=== PATIENT | male | born 1945 | race Caucasian/White ===

== ENCOUNTER 2019-12-09 12:34 | Inpatient (IN) | payer MEDICARE ==
[2019-12-06 13:48] VITALS: BP 99/66
[2019-12-06 13:56] LABS: CHLORIDE 108 mmol/L (98-107)
[2019-12-06 14:03] LABS: ALANINE AMINOTRANSFERASE 19 U/L (12-78); ALBUMIN 3.1 g/dL (3.4-5.0); ALKALINE PHOSPHATASE 72 U/L (45-117); ANION GAP 8 mmol/L (5-15); BILIRUBIN,TOTAL 0.7 mg/dL (0.2-1.0); CALCIUM 8.9 mg/dL (8.5-10.1); CREATININE 1.44 mg/dL (0.7-1.3); TOTAL PROTEIN 6.6 g/dL (6.4-8.2)
[2019-12-06 14:07] LABS: BASOPHILS # (AUTO) 0.03 x10^3/uL (0-0.1); BASOPHILS % (AUTO) 0 % (0-1); EOSINOPHILS # (AUTO) 0.07 x10^3/uL (0-0.4); EOSINOPHILS % (AUTO) 1 % (1-7); LYMPHOCYTES # (AUTO) 2.04 x10^3/uL (1-3.4); LYMPHOCYTES % (AUTO) 26 % (22-44); MD NO; MEAN CORPUSCULAR HEMOGLOBIN 30.4 pg (27.5-34.5); MEAN CORPUSCULAR HGB CONC 32.3 g/dL (33.2-36.2); MONOCYTES # (AUTO) 0.61 x10^3/uL (0.2-0.8); MONOCYTES % (AUTO) 8 % (2-9); NEUTROPHILS # (AUTO) 5.11 x10^3/uL (1.8-6.8); NEUTROPHILS % (AUTO) 65 % (42-75); PLATELET COUNT 326 x10^3/uL (130-400); RED BLOOD COUNT 5.25 x10^6/uL (4.38-5.82); RED CELL DISTRIBUTION WIDTH 15.8 % (9.4-14.8)
[2019-12-06 14:08] LABS: INTERNATIONAL NORMALIZED RATIO 1.02 (0.93-1.1); PROTHROMBIN TIME 10.8 Seconds (9.6-11.5)
[~2019-12-09] VITALS: Ht 177.8 cm; Wt 117.6 kg
[~2019-12-09 12:34] MED LIST: LACTATED RINGERS 1,000 ML IV SCH; TRANEXAMIC ACID 100 MG/ML, 10ML ONE; WILL BRING DOS
[2019-12-09] MEDS ORDERED: ROPIvacaine/PF 0.2%, 20 ML ONE (13:09)
[2019-12-09] MEDS ORDERED: KETOROLAC 60 MG/2 ML ONE (13:09)
[2019-12-09] MEDS ORDERED: SODIUM CHLORIDE 0.9% 50 ML ONE (13:10)
[2019-12-09 13:12] VITALS: BP 136/89
[2019-12-09] MEDS ORDERED: TAMS-11 PO (13:20)
[2019-12-09] MEDS ORDERED: METO25TA35 PO (13:20)
[2019-12-09] MEDS ORDERED: GABA300C PO (13:20)
[2019-12-09] MEDS ORDERED: ALLO300T PO (13:20)
[2019-12-09] MEDS ORDERED: AMIO200T42 PO (13:20)
[2019-12-09] MEDS ORDERED: ATOR20TA37 PO (13:20)
[2019-12-09] MEDS ORDERED: FAMO20TA7 PO (13:20)
[2019-12-09] MEDS ORDERED: CHLORHEXIDINE 15 ML UDC MM ONE (13:30)
[2019-12-09] MEDS ORDERED: VANCOMYCIN PER PHARMACY MC PRN (13:30)
[2019-12-09] MEDS ORDERED: LACTATED RINGERS 1,000 ML IV SCH (14:00)
[2019-12-09] MEDS ORDERED: ACETAMINOPHEN 500 MG TABLET PO ONE (14:00)
[2019-12-09] MEDS ORDERED: GABAPENTIN 300 MG CAPSULE PO ONE (14:00)
[2019-12-09] MEDS ORDERED: VANCOMYCIN 2,200 MG in SODIUM CHLORIDE 0.9% 500 ML IV ONE (14:30)
[2019-12-09] MEDS ORDERED: ROPivacaine/PF 0.2%, 10 ML ONE (14:31)
[2019-12-09] MEDS ORDERED: MIDAZOLAM 1 MG/ML, 2ML ONE (17:06)
[2019-12-09] MEDS ORDERED: FENTANYL PF 250 MCG/5ML ONE (17:07)
[2019-12-09] MEDS ORDERED: PROPOFOL 10 MG/ML, 100ML IV ONE (17:46)
[2019-12-09] MEDS ORDERED: ROCURONIUM 10 MG/ML,10ML ONE (17:46)
[2019-12-09] MEDS ORDERED: SUGAMMADEX 200 MG/2 ML IVPush ONE (17:46)
[2019-12-09] MEDS ORDERED: VANCOMYCIN 1,000 MG ONE (19:05)
[2019-12-09] MEDS ORDERED: LABETALOL 5MG/ML, 20ML IV PRN (19:30)
[2019-12-09] MEDS ORDERED: hydrALAzine 20 MG/ML, 1ML IV PRN (19:30)
[2019-12-09] MEDS ORDERED: HYDROmorphone 1 MG/ML, 1ML INJ IVPush PRN (19:30)
[2019-12-09] MEDS ORDERED: OXYcodone 5 MG/5 ML ORAL.SOL UDC PO PRN (19:30)
[2019-12-09] MEDS ORDERED: ONDANSETRON 2MG/ML, 2ML IVPush PRN ×2 (19:30→20:00)
[2019-12-09] MEDS ORDERED: FENTANYL PF 100 MCG/2ML ONE (19:42)
[2019-12-09] MEDS ORDERED: POTASSIUM CHLORIDE 20 MEQ in D5%-0.45% NACL 1,000 ML IV SCH (19:43)
[2019-12-09] MEDS ORDERED: OXYcodone 5 MG/5 ML ORAL.SOL UDC ONE (19:43)
[2019-12-09] MEDS ORDERED: PSYLLIUM PACKET PO PRN (20:00)
[2019-12-09] MEDS ORDERED: ONDANSETRON 4 MG TABLET PO PRN (20:00)
[2019-12-09] MEDS ORDERED: PROMETHAZINE 25 MG/ML, 1ML IM PRN (20:00)
[2019-12-09] MEDS ORDERED: MAGNESIUM HYDROXIDE 8%, 30ML UDC PO PRN (20:00)
[2019-12-09] MEDS ORDERED: DIPHENHYDRAMINE 50 MG CAPSULE PO PRN (20:00)
[2019-12-09] MEDS ORDERED: DIPHENHYDRAMINE 50 MG/ML, 1ML IVPush PRN (20:00)
[2019-12-09] MEDS ORDERED: SENNA/DOCUSATE TABLET PO PRN (20:00)
[2019-12-09] MEDS ORDERED: HYDROmorphone 2 MG/ML, 1ML IVPush PRN (20:00)
[2019-12-09] MEDS ORDERED: ALUMINUM/MAG/SIMETHICONE 30 ML UDC PO PRN (20:00)
[2019-12-09] MEDS ORDERED: ACETAMINOPHEN 325 MG TABLET PO PRN (20:00)
[2019-12-09] MEDS ORDERED: TRANEXAMIC ACID 1,000 MG in SODIUM CHLORIDE 0.9% 100 ML IVPB ONE (20:00)
[2019-12-09] MEDS ORDERED: POLYETHYLENE GLYCOL 17 GM PACKET PO PRN (20:00)
[2019-12-09] MEDS ORDERED: VANCOMYCIN PMX 1GM/200ML 200 ML IVPB SCH (20:00)
[2019-12-09] MEDS: FENTANYL PF 100 MCG/2ML IV PRN ×2 (20:10→20:15)
[2019-12-09] MEDS ORDERED: HYDROmorphone 1 MG/ML, 1ML INJ ONE (20:29)
[2019-12-09] MEDS ORDERED: MEPERIDINE/PF 25MG/ML,1ML ONE (20:39)
[2019-12-09] MEDS: MEPERIDINE/PF 25MG/0.5ML IVPush PRN ×2 (20:41→20:51)
[2019-12-09] MEDS ORDERED: ATORVASTATIN 20 MG TABLET PO SCH (21:00)
[2019-12-09] MEDS: DOCUSATE 100 MG CAPSULE PO SCH (22:57)
[2019-12-09] MEDS: KETOROLAC 30 MG/1 ML IV SCH (22:57)
[2019-12-09] MEDS: GABAPENTIN 300 MG CAPSULE PO SCH (22:57)
[2019-12-10] MEDS: D5%-0.45NACL+KCL 20MEQ 1,000 ML IV SCH ×2 (00:03→09:29)
[2019-12-10] MEDS: OXYcodone IR 5MG TABLET PO PRN ×3 (00:11→09:29)
[2019-12-10] MEDS: CEFAZOLIN PMX 1GM/50ML 50 ML IVPB SCH ×2 (02:11→09:28)
[2019-12-10 03:15] VITALS: BP 142/87
[2019-12-10] MEDS ORDERED: DEXAMETHASONE 4 MG/ML, 1ML IVPush SCH (06:00)
[2019-12-10] MEDS ORDERED: METOPROLOL TARTRATE 25 MG TAB PO SCH (06:00)
[2019-12-10] MEDS: KETOROLAC 30 MG/1 ML IV SCH ×2 (06:25→13:30)
[2019-12-10] MEDS: RIVAROXABAN 20 MG TABLET PO SCH ×2 (06:25→09:29)
[2019-12-10 07:51] VITALS: BP 153/90
[2019-12-10] MEDS ORDERED: FAMOTIDINE 20 MG TABLET PO SCH (09:00)
[2019-12-10] MEDS ORDERED: ALLOPURINOL 300 MG TABLET PO SCH (09:00)
[2019-12-10] MEDS ORDERED: TAMSULOSIN 0.4 MG CAP.ER.24H PO SCH (09:00)
[2019-12-10] MEDS ORDERED: AMIODARONE 200 MG TABLET PO SCH (09:00)
[2019-12-10] MEDS: GABAPENTIN 300 MG CAPSULE PO SCH (09:28)
[2019-12-10] MEDS: DOCUSATE 100 MG CAPSULE PO SCH (09:28)
[2019-12-10 14:50] VITALS: BP 126/80
[2019-12-11] MEDS ORDERED: FAMOTIDINE 20 MG TABLET PO SCH (09:00)
== END 2019-12-10 16:55 | disposition home or self-care (01) | DRG 466 ==
LOC: ORIP 12:34 → 4NE 21:40
PROVIDERS: ADMIT Orthopaedic Surgery; ATTEND Orthopaedic Surgery
PROC: 0SP90JZ Removal of Synthetic Substitute from Right Hip Joint, Open Approach (ICD-10-PCS; 2019-12-09)
PROC: 0SR90JA Replacement of Right Hip Joint with Synthetic Substitute, Uncemented, Open Approach (ICD-10-PCS; principal; 2019-12-09 17:00)
DX: T84.090A Other mechanical complication of internal right hip prosthesis, initial encounter (principal); N17.0 Acute kidney failure with tubular necrosis; E11.9 Type 2 diabetes mellitus without complications; K21.9 Gastro-esophageal reflux disease without esophagitis; I10 Essential (primary) hypertension; E66.01 Morbid (severe) obesity due to excess calories; Z71.3 Dietary counseling and surveillance; Z68.37 Body mass index [BMI] 37.0-37.9, adult; Z20.828 Contact with and (suspected) exposure to other viral communicable diseases; Y79.2 Prosthetic and other implants, materials and accessory orthopedic devices associated with adverse incidents; Y92.89 Other specified places as the place of occurrence of the external cause
CPT/HCPCS: 36415; 80053; 82962; 83036; 85014; 85018; 85025; 85610; 85730; 86850; 86900; 87070; 87075; 87081; 87102; 87116; 87205; 87206; 87635; 87806; 93005; C1713; G0378; J0690; J1100; J1170; J1885; J2175; J2250; J2704; J2795; J3010; J3370; C1762; C1776; G0475; J1200; J3480; J7040; J7120

== ENCOUNTER 2019-12-16 20:18 | Emergency (ER) | payer MEDICARE ==
[~2019-12-16] VITALS: Ht 177.8 cm; Wt 118.7 kg
[~2019-12-16 20:18] MED LIST changes: +ALLO300T PO; +AMIO200T42 PO; +ATOR20TA37 PO; +FAMO20TA7 PO; +GABA300C PO; -LACTATED RINGERS 1,000 ML IV SCH; +METO25TA35 PO; +TAMS-11 PO; -TRANEXAMIC ACID 100 MG/ML, 10ML ONE
--- NOTE | 2019-12-16 20:20 | NUR ---
pt BIB ambulance from home c/o difficulty urinating x4 days. pt reports that he just had R hip replacement last week and has been home for 4 days. reports that he has to apply pressure to his bladder to be able to urinate. pt states that he was just seen by home health today for the first time and told the RN that he was having difficulty urinating and the RN told him to come to the ER. pt has not had a F/U with his surgeon yet. pt states that he wants a catheter pt has a postop wound dressing in place with a wound vac to R hip. dressing CDI. pt has 3+ edema to bilat LE, denies CP, denies SOB
--- NOTE | 2019-12-16 20:50 | NUR ---
flores placed at bedside using sterile technique. pt magali carea cleansed with theraworks wipes prior to flores placement pt reports immediate relief
--- NOTE | 2019-12-16 21:00 | NUR ---
pt has a very large abd hernia on the R wide of his abdomen. pt reports that he has previously had surgery on it and mesh placement and removal 10 years ago. Addendum: 12/16/19 at 2120 by DAISY pt has a very large abdominal wall hernia on L side of abdomen. pt reports that he has had surgery on it with mesh placement and removal about 10 years ago. pt states that the procedure was done at [facility] and thta he does not recall the name of his surgeon
[2019-12-16 21:11] LABS: MICROSCOPIC AUTO
[2019-12-16 21:38] LABS: BASOPHILS # (AUTO) 0.02 x10^3/uL (0-0.1); BASOPHILS % (AUTO) 0 % (0-1); EOSINOPHILS % (AUTO) 0 % (1-7); LYMPHOCYTES # (AUTO) 1.83 x10^3/uL (1-3.4); LYMPHOCYTES % (AUTO) 26 % (22-44); MD NO; MEAN CORPUSCULAR HEMOGLOBIN 30.4 pg (27.5-34.5); MEAN CORPUSCULAR HGB CONC 32.1 g/dL (33.2-36.2); MEAN CORPUSCULAR VOLUME 94.8 fL (81-97); MEAN PLATELET VOLUME 8.2 fL (7.4-10.4); MONOCYTES % (AUTO) 10 % (2-9); NEUTROPHILS # (AUTO) 4.37 x10^3/uL (1.8-6.8); NEUTROPHILS % (AUTO) 63 % (42-75); PLATELET COUNT 311 x10^3/uL (130-400); RED BLOOD COUNT 4.09 x10^6/uL (4.38-5.82); RED CELL DISTRIBUTION WIDTH 15.9 % (9.4-14.8)
[2019-12-16 21:48] LABS: ALBUMIN 2.4 g/dL (3.4-5.0); ANION GAP 5 mmol/L (5-15); CALCIUM 8.5 mg/dL (8.5-10.1); CHLORIDE 108 mmol/L (98-107); CREATININE 1.22 mg/dL (0.7-1.3)
--- NOTE | 2019-12-16 22:49 | NUR ---
pt continues sleeping. no apparent distress
--- NOTE | 2019-12-16 23:12 | NUR ---
Dr. Blanchard at bedside for recheck
--- NOTE | 2019-12-16 23:24 | NUR ---
pt to be D/C. pt is WC bound and his WC was not brought to the hospital with him. pt to have ambulance transport home pt declines leg bag
--- NOTE | 2019-12-16 23:45 | NUR ---
pt given education regarding flores care, cleaning and emptying. pt verbalized understanding. awaiting medical transport home. pt updated on POC. pt is followed by home health who will be visiting him tomoroow or the next day
[2019-12-17 00:53] VITALS: BP 123/82
== END 2019-12-17 00:56 | disposition home or self-care (01) ==
LOC: ED 22:17
DX: R33.8 Other retention of urine (principal)
CPT/HCPCS: 36415; 51702; 80048; 81001; 82040; 85025; 99285

== ENCOUNTER 2019-12-17 17:55 | Emergency (ER) | payer MEDICARE ==
[~2019-12-17] VITALS: Ht 177.8 cm; Wt 120.0 kg
[2019-12-17 18:03] VITALS: BP 117/80
[2019-12-17] MEDS ORDERED: LIDOCAINE 2%,20 ML JEL.PF.APP MM ONE ×2 (18:08→18:30)
--- NOTE | 2019-12-17 18:58 | NUR ---
NEW ALVAREZ INSERTED. BLADDER IRRIGATION COMMENCED. PT TOLERATED WELL. CATHETER SEEMS TO BE DRAINING APPROPRIATELY
--- NOTE | 2019-12-17 20:11 | NUR ---
ALVAREZ IS DRAINING APPROPRIATELY. PT EDUCATED ON THAT HE NEEDS TO FOLLOW UP WITH UROLOGY AND THAT IF THIS HAPPENS AGAIN HE IS TO COME BACK TO THE ER AND NOT LET HIS HOME HEALTH NURSE REMOVE THE ALVAREZ
== END 2019-12-17 20:14 | disposition home or self-care (01) ==
LOC: ED 20:00
DX: R31.0 Gross hematuria (principal); R33.9 Retention of urine, unspecified; Z87.891 Personal history of nicotine dependence
CPT/HCPCS: 51702; 99284